=== PATIENT | male | born 1955 | race Hispanic/Latino ===

== ENCOUNTER 2019-11-19 08:40 | Observation (INO) | payer BC ==
[2019-11-18 12:14] LABS: BASOPHILS # (AUTO) 0.1 (0.0-0.1); BASOPHILS % 0.8 % (0.0-1.0); EOSINOPHILS # (AUTO) 0.2 (0.0-0.4); EOSINOPHILS % 3.1 % (0.0-6.0); HEMATOCRIT 46.3 % (38.2-49.6); HEMOGLOBIN 15.3 g/dL (14.0-18.0); LYMPHOCYTES # (AUTO) 2.2 (1.0-3.2); MEAN CORPUSCULAR HEMOGLOBIN 30.2 pg (28-32); MEAN CORPUSCULAR VOLUME 91.3 fL (81-99); MONOCYTES # (AUTO) 0.6 (0.2-0.8); MONOCYTES % 8.4 % (4.4-11.3); NEUTROPHILS # (AUTO) 4.3 (2.1-6.9); NEUTROPHILS % 58.4 % (38.7-80.0); PLATELET COUNT 192 x10e3/uL (140-360); RED BLOOD COUNT 5.07 x10e6/uL (4.3-5.7); RED CELL DISTRIBUTION WIDTH 14.5 % (11.7-14.4)
[2019-11-18 12:29] LABS: INR 0.87; PROTHROMBIN TIME 12.3 seconds (11.9-14.5)
[2019-11-18 12:30] LABS: PARTIAL THROMBOPLASTIN TIME 28.1 seconds (23.8-35.5)
[2019-11-18 12:31] LABS: ANION GAP 15.3 mmol/L (8-16); BLOOD UREA NITROGEN 19 mg/dL (7-26); BUN/CREATININE RATIO 20 (6-25); CALCIUM 9.9 mg/dL (8.4-10.2); CARBON DIOXIDE 26 mmol/L (22-29); CHLORIDE 103 mmol/L (98-107); CREATININE, SERUM 0.96 mg/dL (0.72-1.25); EST GLOMERULAR FILTRATION RATE > 60 ML/MIN (60-); GLUCOSE 92 mg/dL (74-118); POTASSIUM 4.3 mmol/L (3.5-5.1); SODIUM 140 mmol/L (136-145)
--- NOTE | 2019-11-18 12:41 | Diagnostic Imaging Report ---
EXAMINATION: CHEST 2 VIEWS INDICATION: ^PREOP ^[id number] ^1145 COMPARISON: None FINDINGS: PA and lateral views TUBES and LINES: None. LUNGS: Lungs are well inflated. Linear scarring or atelectasis within both lungs. The lungs are otherwise clear. There is no evidence of pneumonia or pulmonary edema. PLEURA: No pleural effusion or pneumothorax. HEART AND MEDIASTINUM: The cardiomediastinal silhouette is unremarkable. BONES AND SOFT TISSUES: No acute osseous lesion. Soft tissues are unremarkable. UPPER ABDOMEN: No free air under the diaphragm. IMPRESSION: No acute thoracic radiographic abnormality. Signed by: Jatin Golden MD on 11/18/2019 12:39 PM
[~2019-11-19] VITALS: Ht 177.8 cm; Wt 83.0 kg
[~2019-11-19 08:40] MED LIST: ACETAMINOPHEN 1000 MG/100 ML 100 ML IV ONE; ATORVASTATIN CA20 MG PO; CELEBREX200 MG PO; FLOMAX0.4 MG PO; FLUOXETINE HCL20 MG PO; IBUPROFEN 800MG/ 200ML 200 ML IV ONE; LEXAPRO10 MG PO; LIDOCAINE HCL (LTA) 4 ML SOLN ONE; LISINOPRIL-HCT1 EACH PO; ULTRAM50 MG PO; VIAGRA25 MG PO
--- OUTSIDE RECORDS SUMMARY | 2019-11-19 08:43 | XMS REPORT ---
Author Author [facility] Address Unknown Phone Unavailable Care Team Providers Care Seo Associate Name Role Phone SHANNON CRESPO Unavailable Unavailable Problems This patient has no known problems. Allergies, Adverse Reactions, Alerts This patient has no known allergies or adverse reactions. Medications This patient has no known medications. Results Test Description Test Time Test Comments Text Results Atomic Results Result Comments CHEST 2 VIEWS 2019-11-18 12:38:00 [place] [address] Patient Name: AUDI DONIS MR #: [id number] : 1955 Age/Sex: 64/M Req #: [id number] Adm Physician: Ordered by: SHANNON CRESPO MD Report #: [id number] Location: OR Room/Bed: Procedure: [id number] DX/CHEST 2 VIEWS Exam Date: 11/18/19 Exam Time: 1145 REPORT STATUS: Signed EXAMINATION: CHEST 2 VIEWS INDICATION: PRE OP [id number] COMPARISON: None FINDINGS: PA and lateral views TUBES and LINES: None. LUNGS: Lungs are well inflated. Linear scarring or atelectasis within both lungs. The lungs are otherwise clear. There is no evidence of pneumonia or pulmonary edema. PLEURA: No pleural effusion or pneumothorax. HEART AND MEDIASTINUM: The cardiomediastinal silhouette is unremarkable. BONES AND SOFT TISSUES: No acute osseous lesion. Soft tissues are unremarkable. UPPER ABDOMEN: No free air under the diaphragm. IMPRESSION: No acute thoracic radiographic abnormality. Signed by: Ashkan Rios MD on 11/18/2019 12:39 PM Dictated By: ASHKAN RIOS MD 1239 Transcribed By: HEDY on 11/18/19 1239 COPY TO: SHANNON CRESPO MD
[2019-11-19] MEDS ORDERED: CEFAZOLIN SOD 1 GM/NS 50ML 100 ML IV ONE (09:25)
[2019-11-19] MEDS ORDERED: BUPIVACAINE 0.5%/EPI 30 ML SDV INJ ONE (09:42)
[2019-11-19] MEDS ORDERED: BACITRACIN 50,000 UNIT VIAL ONE (09:42)
[2019-11-19] MEDS ORDERED: THROMBIN FOR SOLN 5,000 UNIT VIAL ONE (09:42)
[2019-11-19] MEDS ORDERED: FENTANYL CITRATE/PF 100MCG/2 ML INJ ONE ×2 (13:42→18:05)
[2019-11-19] MEDS ORDERED: CARISOPRODOL 350 MG TAB PO PRN (13:45)
[2019-11-19] MEDS ORDERED: CEPACOL SORE THROAT LOZENGES PO PRN (13:45)
[2019-11-19] MEDS ORDERED: ONDANSETRON HCL INJ 2MG/ML 2ML 2 MG/ML VIAL IV PRN (13:45)
[2019-11-19] MEDS ORDERED: OXYCODONE/ACETAMINOPHEN 5-325 1 EACH TABLET PO PRN (13:45)
[2019-11-19] MEDS ORDERED: MORPHINE SULFATE 5 MG/ML VIAL IM PRN (13:45)
[2019-11-19] MEDS ORDERED: ACETAMINOPHEN 325 MG TAB PO PRN (13:45)
[2019-11-19] MEDS ORDERED: MAGNESIUM/ALUMINUM/SIMETHICONE 30 ML UDC PO PRN (13:45)
[2019-11-19] MEDS ORDERED: TRAMADOL HCL 50 MG TAB PO PRN (13:45)
[2019-11-19] MEDS ORDERED: PROMETHAZINE HCL (IM) 25 MG/ML VIAL IM PRN (13:45)
[2019-11-19] MEDS: HYDROMORPHONE 2MG/ML 2 MG/ML ML IV PRN ×2 (14:06→21:36)
[2019-11-19] MEDS ORDERED: MIDAZOLAM HCL 2 MG/2 ML VIAL ONE ×2 (14:26→18:05)
--- NOTE | 2019-11-19 15:45 | NUR ---
pt alert resp even and unlabored, no distress noted pt has no c/o pain, when asked , pt oriented to room and call light, pt bed in lowest position, bed rails up x2, pt has Hemovac to surgical site, pt call light in reach.
[2019-11-19 15:59] VITALS: BP 144/84
[2019-11-19 16:41] VITALS: BP 144/84
[2019-11-19] MEDS ORDERED: NEOSTIGMINE 1 MG/ML 10ML VIAL ONE (17:41)
[2019-11-19] MEDS ORDERED: GLYCOPYRROLATE INJ 0.2 MG/ML VIAL ONE (17:41)
[2019-11-19] MEDS ORDERED: LIDOCAINE HCL 2% JELLY 5 ML TUBE ONE (17:41)
[2019-11-19] MEDS ORDERED: PROPOFOL IV EMULSION 10 MG/ML 20 ML VIAL ONE (17:41)
[2019-11-19] MEDS ORDERED: SEVOFLURANE INHAL SOLN 250 ML PEN BTL ONE (17:41)
[2019-11-19] MEDS ORDERED: ROCURONIUM BROMIDE 10 MG/ML 5ML VIAL ONE (17:41)
[2019-11-19] MEDS ORDERED: LIDOCAINE HCL 2% LOCAL INJ 5 ML SDV VIAL INJ ONE (17:41)
[2019-11-19] MEDS ORDERED: DEXAMETHASONE SOD PHOS INJ 4 MG/ML VIAL ONE (17:41)
[2019-11-19] MEDS: CEFAZOLIN SOD 1 GM/NS 50ML 50 ML IV SCH (17:52)
--- NOTE | 2019-11-19 19:22 | NUR ---
report given to oncoming nurse walking rounds complete.
[2019-11-19 20:00] VITALS: BP 131/67
[2019-11-19 20:40] VITALS: BP 144/84
--- NOTE | 2019-11-19 20:43 | Operative Report ---
DATE OF PROCEDURE: 11/19/2019 SURGEON: Bhaskar Calix MD PREOPERATIVE DIAGNOSIS: C3-4, C4-5, and C5-6 spondylosis with myelopathy, M50.020. POSTOPERATIVE DIAGNOSIS: C3-4, C4-5, and C5-6 spondylosis with myelopathy, M50.020. PROCEDURES: 1. C3-C4 anterior cervical diskectomy and microsurgical osteophyte resection and allograft fusion, 45582. 2. C4-5 anterior cervical diskectomy and microsurgical osteophyte resection and allograft fusion, 45877. 3. C5-C6 anterior cervical diskectomy and microsurgical osteophyte resection and allograft fusion, 35433. 4. Preparation of tricortical iliac crest allograft, 00906. 5. C3-C4-C5-C6 anterior cervical plating with Synthes CSLP plate, 98620. ANESTHESIA: General. INDICATIONS: The patient is a man, who presents with three-level cervical spondylosis and severe spinal stenosis with myelopathy and myelomalacia. He was taken to the operating room for three level ACDF. DESCRIPTION OF THE PROCEDURE: After induction of anesthesia, the patient was placed on the operating table in supine position. The right side of the neck was prepped and draped in sterile fashion. The fluoroscopic C-arm was positioned in cross-table lateral orientation. A transverse incision was created on right side of the neck. The platysma was divided in right in line with the incision. A subplatysmal dissection was carried out and avascular plane of dissection was developed medial to the sternocleidomastoid muscle and was followed medial to the carotid sheath to the anterior border of cervical spine. The deep cervical fascia was opened. The esophagus was retracted to the left. The attachments of longus colli muscles to the anterolateral aspects of vertebral bodies of C3, C4, C5, and C6 were divided. The anterior longitudinal ligament was resected. [place] posts were inserted into C3 and C6. The [place] distractor was used to distract all three disk spaces simultaneously. The anterior annuli of the disks were incised with a #11 blade and the contents of all three disks were thoroughly evacuated with angled curettes and pituitary rongeurs. The posterior osteophytes were meticulously drilled with a 2 mm cutting bur until they were completely removed. The posterior annulus of the disk, herniated disk material, and the posterior longitudinal ligament were resected layer by layer until the dura was fully exposed and decompressed at all three levels. The medial aspects of the uncinate processes were resected bilaterally at all three levels to further expose any compressed origins of the corresponding nerve roots. After satisfactory decompression had been achieved, the endplates were prepared for fusion. Three pieces of tricortical iliac crest allograft were cut to the size and shapes of the disk spaces and were inserted into the disk spaces under distraction and fluoroscopic guidance. The distraction was released and distraction posts were removed. A Synthes CSLP variable-type anterior cervical plate measuring 51 mm was selected and was affixed to the vertebral bodies of C3, C4, C5, and C6 with four pairs of 16 x 4.35 mm screws. All screw holes were drilled and tapped on the lateral fluoroscopic guidance. All screws were locked with the appropriate locking screws and excellent construct was obtained. The wound was copiously irrigated with bacitracin solution. Meticulous hemostasis was secured. Retractor was removed. The platysma was closed with 3-0 Vicryl sutures. The skin was closed with 4-0 Monocryl sutures in subcuticular fashion. Steri-Strips and dressing were applied. The patient was awakened, extubated, and taken to postanesthesia care unit in stable condition. No intraoperative complications were encountered. Estimated blood loss was 30 mL. Bhaskar Calix MD PP/RODGER /[id number]
[2019-11-19] MEDS ORDERED: ATORVASTATIN 20 MG TAB PO SCH (21:00)
[2019-11-19] MEDS ORDERED: ZOLPIDEM TARTRATE 5 MG TAB PO PRN (21:00)
[2019-11-19] MEDS: LACTATED RINGER'S 1,000 ML IV SCH (21:53)
[2019-11-20] VITALS: BP 133/72
[2019-11-20] MEDS: HYDROMORPHONE 2MG/ML 2 MG/ML ML IV PRN ×3 (01:45→05:45)
[2019-11-20] MEDS: LACTATED RINGER'S 1,000 ML IV SCH ×2 (02:47→06:13)
[2019-11-20] MEDS: CEFAZOLIN SOD 1 GM/NS 50ML 50 ML IV SCH ×2 (02:47→10:39)
[2019-11-20 04:00] VITALS: BP 144/72
[2019-11-20] MEDS ORDERED: NORCO 7.5-3251 EACH PO (07:50)
[2019-11-20 08:12] VITALS: BP 149/90
[2019-11-20] MEDS ORDERED: LISINOPRIL 20 MG TAB PO SCH (09:00)
[2019-11-20] MEDS ORDERED: HYDROCHLOROTHIAZIDE 25 MG TAB PO SCH (09:00)
[2019-11-20] MEDS ORDERED: ESCITALOPRAM OXALATE 10 MG TAB PO SCH (09:00)
[2019-11-20] MEDS ORDERED: TAMSULOSIN HCL 0.4 MG CAP PO SCH (09:00)
[2019-11-20] MEDS ORDERED: FLUOXETINE HCL 20 MG CAP PO SCH (09:00)
--- NOTE | 2019-11-20 09:35 | NUR ---
ASSESSMENT: No spiritual concerns Intervention: Provided hospitality and information on how to reach prepared foods associate, if needed. Outcome: Pt expressed appreciation for visit. No need to follow at this time. JUSTIN SIMMONS Basket Maker Spiritual Care Department O: [phone]
[2019-11-20 10:45] VITALS: BP 149/90
--- NOTE | 2019-11-20 11:00 | NUR ---
REMOVED HEMOVAC PER MD ORDER, PT TOLERATED WELL, STERI STRIPS INTACT
[2019-11-20 12:36] VITALS: BP 161/86
--- NOTE | 2019-11-20 12:42 | NUR ---
DISCHARGE INSTRUCTIONS REVIEWED WITH PT, VERBALIZED UNDERSTANDING,
--- NOTE | 2019-11-20 12:51 | NUR ---
WHEELED OFF UNIT FOR DISCHARGE, NO CHANGE IN CONDITION
== END 2019-11-20 12:51 | disposition home or self-care (01) ==
LOC: OR 08:40 → PACU V 13:35 → MED/SURG 15:37
PROVIDERS: ADMIT Neurological Surgery; ATTEND Neurological Surgery
DX: M50.01 Cervical disc disorder with myelopathy, high cervical region (principal); I10 Essential (primary) hypertension; E78.5 Hyperlipidemia, unspecified; M47.12 Other spondylosis with myelopathy, cervical region; Z01.810 Encounter for preprocedural cardiovascular examination; Z01.812 Encounter for preprocedural laboratory examination; Z01.811 Encounter for preprocedural respiratory examination
CPT/HCPCS: 20931; 22551; 22552 ×2; 22846; 36415; 71046; 77003; 80048; 85025; 85610; 85730; 86850; 86900; 88304; 93005; G0378 ×2; J0131; J0690 ×2; J1100; J1170 ×2; J2001 ×2; J2250; J2405; J2704; J2710; J3010; J7121

== ENCOUNTER → 2019-12-10 | Day surgery (SDC) | payer BC ==
[~2019-12-10] MED LIST changes: -ACETAMINOPHEN 1000 MG/100 ML 100 ML IV ONE; +BUPIVACAINE 0.25% 30ML SDV INJ ONE; +FENTANYL CITRATE/PF 100MCG/2 ML INJ ONE; -IBUPROFEN 800MG/ 200ML 200 ML IV ONE; +IOPAMIDOL 200 MG/ML 20 ML VIAL IT ONE; -LIDOCAINE HCL (LTA) 4 ML SOLN ONE; +LIDOCAINE HCL 1% 30ML-PF VIAL ONE; +LIDOCAINE HCL 2% LOCAL INJ 5 ML SDV VIAL INJ ONE; +METFORMIN HCL500 MG PO; +METHYLPREDNISOLONE ACETATE 80 MG/ML VIAL ONE; +NORCO 7.5-3251 EACH PO; +PROPOFOL IV EMULSION 10 MG/ML 20 ML VIAL ONE
[2019-12-10 08:00] VITALS: BP 134/78
== END | disposition home or self-care (01) ==
LOC: OR 05:28
PROVIDERS: ATTEND Physical Medicine & Rehabilitation Pain Medicine
DX: M54.16 Radiculopathy, lumbar region (principal); M48.061 Spinal stenosis, lumbar region without neurogenic claudication; M43.16 Spondylolisthesis, lumbar region; M54.12 Radiculopathy, cervical region; R93.7 Abnormal findings on diagnostic imaging of other parts of musculoskeletal system; I10 Essential (primary) hypertension; M19.90 Unspecified osteoarthritis, unspecified site
CPT/HCPCS: 64483; 76000; J1040; J2001 ×2; J2704; J3010; Q9967

== ENCOUNTER → 2019-12-17 | Day surgery (SDC) | payer BC ==
[~2019-12-17] MED LIST changes: -BUPIVACAINE 0.25% 30ML SDV INJ ONE; +DEXAMETHASONE SOD PHOS 10 MG/1 ML VIAL ONE; -LIDOCAINE HCL 2% LOCAL INJ 5 ML SDV VIAL INJ ONE; -METHYLPREDNISOLONE ACETATE 80 MG/ML VIAL ONE; +MIDAZOLAM HCL 2 MG/2 ML VIAL ONE
[2019-12-17 07:50] VITALS: BP 145/79
== END | disposition home or self-care (01) ==
LOC: OR 06:26
PROVIDERS: ATTEND Physical Medicine & Rehabilitation Pain Medicine
DX: M54.16 Radiculopathy, lumbar region (principal); M48.061 Spinal stenosis, lumbar region without neurogenic claudication; M43.16 Spondylolisthesis, lumbar region; M54.12 Radiculopathy, cervical region; R93.7 Abnormal findings on diagnostic imaging of other parts of musculoskeletal system; G89.29 Other chronic pain; I10 Essential (primary) hypertension; N40.0 Benign prostatic hyperplasia without lower urinary tract symptoms; Z79.84 Long term (current) use of oral hypoglycemic drugs
CPT/HCPCS: 36415; 77003; 82948; J1100; J2001; J2250; J3010; Q9967